=== PATIENT | female | born 1965 | race Caucasian/White ===

== ENCOUNTER 2017-08-09 21:45 | Observation (INO) | payer OTHER ==
[~2017-08-09] VITALS: Ht 162.6 cm; Wt 64.2 kg
[~2017-08-09 21:45] MED LIST: ALBU1AER9; ASCOTAB; ASPI81TA28 PO; CARV3.122 PO; CHOL1CAP13; FLUC100T4 PO; FLVHFA110 INH; HMLI SC; HYDR-3785 PO; INSU1.2I SC; LISI40TA PO; MISCCAP80 PO; TICA1TAB PO
[2017-08-09] MEDS ORDERED: SODIUM CHLORIDE 0.9% 1000ML 1,000 ML IV STA (22:01)
[2017-08-09] MEDS ORDERED: OPTIRAY 320 IV PRN (22:15)
[2017-08-09] MEDS ORDERED: ALBU18002 INH (22:23)
[2017-08-09] MEDS ORDERED: VNTHFA/IN INH (22:23)
[2017-08-09] MEDS ORDERED: ASCOGRA PO (22:25)
[2017-08-09 22:27] LABS: BASO % 0.6 %; BASO ABS # 0.03 K/uL (0-0.2); COMPLETE YES; EOS % 2.4 %; HEMATOCRIT 35.9 % (37-47); LYMPH % 35.4 %; LYMPH ABS # 1.88 K/uL (1.2-3.4); MEAN CELL VOLUME 83.3 fL (80-100); MEAN CORPUSCULAR HEMOGLOBIN 28.1 pg (25-34); MEAN CORPUSCULAR HGB CONC 33.7 g/dl (32-36); MONO % 8.1 %; NEUT % 53.5 %; PLATELET COUNT 243 K/uL (130-400); RED BLOOD COUNT 4.31 M/uL (4.2-5.4); WHITE BLOOD COUNT 5.31 K/uL (4.8-10.8)
[2017-08-09] MEDS ORDERED: CHOL1000 PO (22:27)
[2017-08-09] MEDS ORDERED: MAGN1POW16 PO (22:33)
[2017-08-09] MEDS ORDERED: LISI-461 PO (22:34)
[2017-08-09 22:35] LABS: ALT/SGPT 23 U/L (12-78); BLOOD UREA NITROGEN 14 mg/dl (7-18); BUN/CREATININE RATIO 16.4 (10-20); CALCIUM 9.1 mg/dl (8.5-10.1); CARBON DIOXIDE 29 mmol/L (21-32); CHLORIDE 100 mmol/L (98-107); CREATININE 0.84 mg/dl (0.60-1.20); GLUCOSE 153 mg/dl (70-99); POTASSIUM 3.7 mmol/L (3.5-5.1); SODIUM 135 mmol/L (136-145)
[2017-08-09 22:40] LABS: ALKALINE PHOSPHATASE 99 U/L (45-117); AST/SGOT 13 U/L (15-37)
[2017-08-09] MEDS ORDERED: LORA-741 PO (22:46)
[2017-08-09] MEDS ORDERED: TURM500C2 PO (22:46)
[2017-08-09] MEDS ORDERED: [UNRECOGNIZED DRUG - OTHER] PO (22:46)
[2017-08-09] MEDS ORDERED: DEXL60CA4 PO (22:53)
[2017-08-09] MEDS ORDERED: CEFD300C2 PO (22:53)
[2017-08-09] MEDS ORDERED: RANI1TAB75 PO (22:53)
[2017-08-09] MEDS ORDERED: DOXY100C76 PO (22:53)
[2017-08-09] MEDS ORDERED: CHLO4TAB70 PO (22:53)
[2017-08-09] MEDS ORDERED: DIGE1CAP7 PEG (22:53)
--- NOTE | 2017-08-09 22:55 | DIAGNOSTIC IMAGING REPORT ---
CHEST ONE VIEW PORTABLE HISTORY: 52 years-old Female CHEST PAIN acute atypical chest pain COMPARISON: Chest radiograph 04/16/2016 TECHNIQUE: Portable upright AP view of the chest FINDINGS: Cardiomediastinal and hilar silhouettes are within normal limits. No pneumothorax, pleural effusion, focal airspace consolidation or overt pulmonary edema. Bones of the chest are grossly intact. IMPRESSION: No acute cardiopulmonary process. The above report was generated using voice recognition software. It may contain grammatical, syntax or spelling errors. Electronically signed by: Flynn Olvera M.D. 08/09/2017 10:54 PM Dictated Date/Time: 08/09/2017 10:53 PM
--- NOTE | 2017-08-09 22:59 | EMERGENCY ROOM VISIT NOTE ---
History Report prepared by Omar: Santo Napoles Under the Supervision of: Dr. Ted Gay M.D. First contact with patient: 21:48 Chief Complaint: CHEST PAIN Stated Complaint: CHEST PAIN History of Present Illness The patient is a 52 year old female who presents to the Emergency Room with complaints of chest pain starting around 1400 which has worsened in the past hour. She states that she has been having pressure in her chest and a high heart rate. She additionally notes that her blood sugar is usually very regulated, though recently her blood sugar has been high. Additionally, she has been having difficulty keeping her salt balanced due to renal dysfunction. She is currently is on two cefdinir and doxycycline for Lyme's disease and an infection in her small bowel. The patient states that she does not take hydrocortisone. The patient has a history of dysautonomia, a heart attack two and a half years ago, a stroke ten years ago, and stage 1 breast cancer which was diagnosed in January, and she is planned to get surgery for this cancer. The patient notes that she was short of breath earlier in the day, though she is okay now. Source of History: patient Onset: 1400 Position: chest Quality: pressure Timing: worsening Associated Symptoms: + SOB Note: Associated symptoms: tachycardic Review of Systems See HPI for pertinent positives and negatives. A total of ten systems were reviewed and were otherwise negative. Past Medical & Surgical Medical Problems: (1) Breast cancer (2) Chest pain, rule out acute myocardial infarction (3) Dysautonomia (4) Heart attack (5) POTS (postural orthostatic tachycardia syndrome) (6) Stroke Social History Smoking Status: Never Smoker Marital Status: Housing Status: lives with family Occupation Status: employed Current/Historical Medications Scheduled Ascorbic Acid (Ascorbic Acid), 150 MG PO BID Carvedilol (Coreg), 3.125 MG PO DAILY Cefdinir (Omnicef), 300 MG PO BID Chlorpheniramine Maleate (Chlorpheniramine Maleate), 4 MG PO HS Cholecalciferol (Vitamin D3), 1,000 UNITS PO BID Dexlansoprazole (Dexilant), 60 MG PO HS Digestive Enzymes (Digestive Enzymes), 1 CAP PEG DAILYBD Doxycycline Monohydrate (Monodox), 100 MG PO BID Insulin Glargine (Toujeo Solostar), 50 UNIT SC DAILYBD Lisinopril (Zestril), 10 MG PO HS Lorazepam (Ativan), 0.5 MG PO BID Magnesium Citrate (Bulk) (Magnesium Citrate), 1 TSP PO BID Probiotic Product (Probiotic), 1 CAP PO BID Ranitidine HCl (Ranitidine 75), 75 MG PO BID Turmeric (Curcuma Longa) (Curcumin 95), 500 MG PO BID [Omegagize], 1 CAP PO BID Scheduled PRN Albuterol Hfa (Ventolin Hfa), 2-4 PUFFS INH Q6H PRN for SOB/Wheezing Allergies Coded Allergies: Moxifloxacin (Unverified Allergy, Severe, EXCELLERATED HEART RATE AND SKIN FLUSHED RED, 08/09/17) Ethanol (Unverified Allergy, Intermediate, unknown, 08/09/17) Phenylphenol (Unverified Allergy, Intermediate, unknown, 08/09/17) Acetaminophen (Unverified Adverse Reaction, Severe, ABDOMINAL PAIN, ) Amoxicillin (Unverified Adverse Reaction, Severe, VOMITING, 08/09/17) Clavulanic Acid (Unverified Adverse Reaction, Severe, VOMITING, 08/09/17) Metoclopramide (Unverified Adverse Reaction, Severe, FACIAL TWITCHES, ) Ibuprofen (Unverified Adverse Reaction, Intermediate, DIZZY, 08/09/17) Uncoded Allergies: JOVANY BENADRYL (Adverse Reaction, Severe, TEMPORARY PARALYSIS, 08/09/17) STEROIDS (Adverse Reaction, Severe, ELEVATED BLOOD SUGARS, 08/09/17) Physical Exam Vital Signs Date Time Temp Pulse Resp B/P (MAP) Pulse Ox O2 Delivery O2 Flow Rate FiO2 08/10/17 01:16 92 18 152/91 100 Room Air 08/09/17 23:59 108 18 137/80 100 Room Air 08/09/17 22:05 100 08/09/17 21:54 100 08/09/17 21:51 100 Room Air 08/09/17 21:47 36.6 105 12 184/94 100 Room Air Physical Exam GENERAL: Awake, alert, anxious-appearing, in no distress HENT: Dry mucous membranes. Normocephalic, atraumatic. Oropharynx unremarkable. EYES: Normal conjunctiva. Sclera non-icteric. NECK: Supple. No nuchal rigidity. FROM. No JVD. RESPIRATORY: Clear to auscultation. CARDIAC:Tachycardic. Extremities warm and well perfused. Pulses equal. ABDOMEN: Soft, non-distended. No tenderness to palpation. No rebound or guarding. No masses. RECTAL: Deferred. MUSCULOSKELETAL: Chest examination reveals no tenderness. The back is symmetrical on inspection without obvious abnormality. There is no CVA tenderness to palpation. No joint edema. LOWER EXTREMITIES: Calves are equal size bilaterally and non-tender. No edema. No discoloration. NEURO: Normal sensorium. No sensory or motor deficits noted. SKIN: Slightly Jaundiced. No rash noted. Medical Decision & Procedures ER Provider Diagnostic Interpretation: Radiology results as stated below per my review and radiologist interpretation: CHEST ONE VIEW PORTABLE HISTORY: 52 years-old Female CHEST PAIN acute atypical chest pain COMPARISON: Chest radiograph 04/16/2016 TECHNIQUE: Portable upright AP view of the chest FINDINGS: Cardiomediastinal and hilar silhouettes are within normal limits. No pneumothorax, pleural effusion, focal airspace consolidation or overt pulmonary edema. Bones of the chest are grossly intact. IMPRESSION: No acute cardiopulmonary process. The above report was generated using voice recognition software. It may contain grammatical, syntax or spelling errors. Electronically signed by: Fylnn Olvera M.D. 08/09/2017 10:54 PM Dictated Date/Time: 08/09/2017 10:53 PM STATRAD: Preliminary Findings Only See Final Report For Complete Findings CTA CHEST: No evidence of PE. Lungs are clear of any airspace disease. 9 mm solid pulmonary nodule at the left lower lobe without calcifications. This is indeterminate and may represent tumor or may be infectious. Follow-up or further workup advised. No pleural effusions. No adenopathy. Heart size is normal. Aorta is unremarkable. Radiologist: Abdirahman Borjas M.D Laboratory Results 08/09/17 22:07 Red Blood Count 4.31, Mean Corpuscular Volume 83.3, Mean Corpuscular Hemoglobin 28.1, Mean Corpuscular Hemoglobin Concent 33.7, Mean Platelet Volume 8.0, Neutrophils (%) (Auto) 53.5, Lymphocytes (%) (Auto) 35.4, Monocytes (%) (Auto) 8.1, Eosinophils (%) (Auto) 2.4, Basophils (%) (Auto) 0.6, Neutrophils # (Auto) 2.84, Lymphocytes # (Auto) 1.88, Monocytes # (Auto) 0.43, Eosinophils # (Auto) 0.13, Basophils # (Auto) 0.03 08/09/17 22:07 Test 08/09/17 22:07 White Blood Count 5.31 K/uL (4.8-10.8) Red Blood Count 4.31 M/uL (4.2-5.4) Hemoglobin 12.1 g/dL (12.0-16.0) Hematocrit 35.9 % (37-47) Mean Corpuscular Volume 83.3 fL (80-100) Mean Corpuscular Hemoglobin 28.1 pg (25-34) Mean Corpuscular Hemoglobin Concent 33.7 g/dl (32-36) Platelet Count 243 K/uL (130-400) Mean Platelet Volume 8.0 fL (7.4-10.4) Neutrophils (%) (Auto) 53.5 % Lymphocytes (%) (Auto) 35.4 % Monocytes (%) (Auto) 8.1 % Eosinophils (%) (Auto) 2.4 % Basophils (%) (Auto) 0.6 % Neutrophils # (Auto) 2.84 K/uL (1.4-6.5) Lymphocytes # (Auto) 1.88 K/uL (1.2-3.4) Monocytes # (Auto) 0.43 K/uL (0.11-0.59) Eosinophils # (Auto) 0.13 K/uL (0-0.5) Basophils # (Auto) 0.03 K/uL (0-0.2) RDW Standard Deviation 38.1 fL (36.4-46.3) RDW Coefficient of Variation 12.6 % (11.5-14.5) Immature Granulocyte % (Auto) 0.0 % Immature Granulocyte # (Auto) 0.00 K/uL (0.00-0.02) Anion Gap 6.0 mmol/L (3-11) Est Creatinine Clear Calc Drug Dose 74.1 ml/min Estimated GFR () 93.3 Estimated GFR (Non- 80.5 BUN/Creatinine Ratio 16.4 (10-20) Calcium Level 9.1 mg/dl (8.5-10.1) Total Bilirubin 0.2 mg/dl (0.2-1) Direct Bilirubin < 0.1 mg/dl (0-0.2) Aspartate Amino Transf (AST/SGOT) 13 U/L (15-37) Alanine Aminotransferase (ALT/SGPT) 23 U/L (12-78) Alkaline Phosphatase 99 U/L (45-117) Troponin I < 0.015 ng/ml (0-0.045) Total Protein 7.6 gm/dl (6.4-8.2) Albumin 3.8 gm/dl (3.4-5.0) Lipase 189 U/L (73-393) Laboratory results reviewed by me Medications Administered Medications (Trade) Dose Ordered Sig/Lesli Route Start Time Stop Time Status Last Admin Dose Admin Sodium Chloride 1,000 ml @ 999 mls/hr Q1H1M STAT IV 08/09/17 22:01 08/09/17 23:01 DC 08/09/17 22:12 999 MLS/HR ECG Indication: chest pain Rate (beats per minute): 105 Rhythm: sinus tachycardia Findings: no acute ischemic change, other (normal axis) ED Course 2147: The patient was evaluated in room C3. A complete history and physical exam was performed. 2200: Sodium Chloride 1000 ml @ 999 mls/hr IV Medical Decision I reviewed the patient's past medical history, medications, and the nursing notes as described above. Differential Diagnoses include: arrhythmia, PE, pneumonia, bronchitis, dissection, ACS, CHF, dehydration, electrolyte abnormality, gastritis. The patient is a 52-year-old woman with a dictated medical history including previous [place], pots syndrome/dysautonomia, recently diagnosed left breast cancer is emergency department with chest tightness and palpitations with shortness of breath. History of present illness. Arrival the patient is anxious appearing but in no acute distress. She is afebrile, heart rate in the low 100s and vital signs otherwise stable. Labs unremarkable with WBC within normal limits. Troponin negative. EKG unremarkable. The patient's active cancer CT PE study was done and negative for PE. However, did comment on a 9mm pulmonary nodule which given the patient's active cancer is suspicious for malignancy although patient had PET scan in March that commented that this nodule was not likely metabolically active and thus likely benign. Given the patient's chest pain in the setting of prior [place] is appropriate to admit this patient for ACS rule out as she has a Heart score of 4, moderate risk. Case d/w Dr. Buck, [facility] resdient , who will admit the patient for further management. Medication Reconcilliation Current Medication List: was personally reviewed by me Blood Pressure Screening Patient's blood pressure: Elevated blood pressure Impression Primary Impression: Substernal precordial chest pain Scribe Attestation The scribe's documentation has been prepared under my direction and personally reviewed by me in its entirety. I confirm that the note above accurately reflects all work, treatment, procedures, and medical decision making performed by me. Departure Information Referrals No Doctor, Assigned (PCP) Patient Instructions My [facility]
[2017-08-10] MEDS ORDERED: ONDANSETRON INJ 2 MG/ML 2 ML VIAL IV PRN ×2 (02:00→03:15)
--- NOTE | 2017-08-10 02:11 | History and Physical ---
History & Physical Date & Time of Service: Aug 10, 2017 at 02:11 Chief Complaint: Chest Pain Primary Care Physician: No Doctor, Assigned History of Present Illness Source: patient Mrs Fraser is a 52 year old female with diabetes and previous PA who presents to the ER with chest pain and palpitations. She notes she sometimes has palpitations while standing for long periods due to her POTS and has some chest pressure associated with this when her heart rate increases - this usually resolves when she sits or lies down on her side. Today however her symptoms started while she was sitting down and not exerting herself. Initially with palpitations, she took her blood pressure and notes her heart rate of 110 ( which is high for her), she then started to feel the same chest pressure sensation which lasted until the ER. She has associated diaphoresis with this. This is similar to the start of her heart attack previously however on that occasion the chest pressure was much more intense than today. Her symptoms were at their maximum around 9pm but have resolved by the time I saw her in the ER. She took x1 of her nitroglycerin which did not make any difference to her symptoms. She recalls a recent stress echo earlier in the year was negative as far as she remembers which she had as workup for potential surgery. She denies feeling unwell before this and is in town for a conference. She may be drinking slightly less than usual. She is currently on treatment for post lyme syndrome with doxycycline and omnicef. She has noticed a 50% improvement She was also diagnosed with stage 1 grade 1 breast cancer in January however she has not had any treatment for this but is awaiting cardiac clearance for bilateral mastectomy. Past Medical/Surgical History Past Medical History: GERD/gastric ulcer Autonomic dysfunction PA (x2 stents) Hyperlipidemia Post lyme disease syndrome Autism POTS Breast cancer Family History Noncontributory Social History Smoking Status: Never Smoker Smokeless Tobacco Use: No Alcohol Use: none Drug Use: none Marital Status: Occupational Status: employed Immunizations History of Influenza Vaccine: Unknown History of Tetanus Vaccine?: Unknown History of Pneumococcal: No History of Hepatitis B Vaccine: Unknown Multi-Drug Resistant Organisms History of MDRO: No Allergies Coded Allergies: Moxifloxacin (Unverified Allergy, Severe, EXCELLERATED HEART RATE AND SKIN FLUSHED RED, 08/09/17) Ethanol (Unverified Allergy, Intermediate, unknown, 08/09/17) Phenylphenol (Unverified Allergy, Intermediate, unknown, 08/09/17) Acetaminophen (Unverified Adverse Reaction, Severe, ABDOMINAL PAIN, ) Amoxicillin (Unverified Adverse Reaction, Severe, VOMITING, 08/09/17) Clavulanic Acid (Unverified Adverse Reaction, Severe, VOMITING, 08/09/17) Metoclopramide (Unverified Adverse Reaction, Severe, FACIAL TWITCHES, ) Ibuprofen (Unverified Adverse Reaction, Intermediate, DIZZY, 08/09/17) Uncoded Allergies: JOVANY BENADRYL (Adverse Reaction, Severe, TEMPORARY PARALYSIS, 08/09/17) STEROIDS (Adverse Reaction, Severe, ELEVATED BLOOD SUGARS, 08/09/17) Home Medications Scheduled Ascorbic Acid (Ascorbic Acid), 150 MG PO BID Carvedilol (Coreg), 3.125 MG PO DAILY Cefdinir (Omnicef), 300 MG PO BID Chlorpheniramine Maleate (Chlorpheniramine Maleate), 4 MG PO HS Cholecalciferol (Vitamin D3), 1,000 UNITS PO BID Dexlansoprazole (Dexilant), 60 MG PO HS Digestive Enzymes (Digestive Enzymes), 1 CAP PEG DAILYBD Doxycycline Monohydrate (Monodox), 100 MG PO BID Insulin Glargine (Toujeo Solostar), 50 UNIT SC DAILYBD Lisinopril (Zestril), 10 MG PO HS Lorazepam (Ativan), 0.5 MG PO BID Magnesium Citrate (Bulk) (Magnesium Citrate), 1 TSP PO BID Probiotic Product (Probiotic), 1 CAP PO BID Ranitidine HCl (Ranitidine 75), 75 MG PO BID Turmeric (Curcuma Longa) (Curcumin 95), 500 MG PO BID [Omegagize], 1 CAP PO BID Scheduled PRN Albuterol Hfa (Ventolin Hfa), 2-4 PUFFS INH Q6H PRN for SOB/Wheezing Nitroglycerin (Nitrostat), 1 TAB SL UD PRN for Chest Pain Review of Systems Constitutional: + sweats (see HPI), No fever, No chills, No weight loss Eyes: No worsening of vision ENT: No hearing loss Respiratory: No cough, No shortness of breath Cardiovascular: + chest pain (see HPI), + palpitations, No orthopnea, No PND, No edema, No claudication Abdomen: + problem reported (bloating), No pain, No nausea, No vomiting, No diarrhea, No constipation, No GI bleeding Musculoskeletal: No joint pain, No muscle pain Genitourinary - Female: No dysuria, No urinary frequency, No urinary urgency, No urinary incontinence, No urinary retention Endocrine: No fatigue Hematologic / Lymphatic: No abnormal bleeding/bruising Integumentary: No rash, No itch Physical Exam Vital Signs Date Time Temp Pulse Resp B/P (MAP) Pulse Ox O2 Delivery O2 Flow Rate FiO2 08/10/17 01:16 92 18 152/91 100 Room Air 08/09/17 23:59 108 18 137/80 100 Room Air 08/09/17 22:05 100 08/09/17 21:54 100 08/09/17 21:51 100 Room Air 08/09/17 21:47 36.6 105 12 184/94 100 Room Air General Appearance: WD/WN, no apparent distress Head: normocephalic, atraumatic Eyes: normal inspection, PERRL, EOMI Neck: supple, no JVD Respiratory/Chest: chest non-tender, lungs clear, normal breath sounds, no respiratory distress, no accessory muscle use Cardiovascular: no murmur, normal peripheral pulses, + tachycardia (90s, regular) Abdomen/GI: normal bowel sounds, non tender, soft Back: no CVA tenderness Extremities/Musculoskelatal: no calf tenderness, normal capillary refill, no pedal edema Neurologic/Psych: clinic coordinator II-XII nml as tested, no motor/sensory deficits (grossly) , alert, oriented x 3 Skin: normal color, warm/dry, no rash Diagnostics Laboratory Results Results Past 24 Hours Test 08/09/17 22:07 Range/Units White Blood Count 5.31 4.8-10.8 K/uL Red Blood Count 4.31 4.2-5.4 M/uL Hemoglobin 12.1 12.0-16.0 g/dL Hematocrit 35.9 37-47 % Mean Corpuscular Volume 83.3 80-100 fL Mean Corpuscular Hemoglobin 28.1 25-34 pg Mean Corpuscular Hemoglobin Concent 33.7 32-36 g/dl Platelet Count 243 130-400 K/uL Mean Platelet Volume 8.0 7.4-10.4 fL Neutrophils (%) (Auto) 53.5 % Lymphocytes (%) (Auto) 35.4 % Monocytes (%) (Auto) 8.1 % Eosinophils (%) (Auto) 2.4 % Basophils (%) (Auto) 0.6 % Neutrophils # (Auto) 2.84 1.4-6.5 K/uL Lymphocytes # (Auto) 1.88 1.2-3.4 K/uL Monocytes # (Auto) 0.43 0.11-0.59 K/uL Eosinophils # (Auto) 0.13 0-0.5 K/uL Basophils # (Auto) 0.03 0-0.2 K/uL RDW Standard Deviation 38.1 36.4-46.3 fL RDW Coefficient of Variation 12.6 11.5-14.5 % Immature Granulocyte % (Auto) 0.0 % Immature Granulocyte # (Auto) 0.00 0.00-0.02 K/uL Sodium Level 135 136-145 mmol/L Potassium Level 3.7 3.5-5.1 mmol/L Chloride Level 100 98-107 mmol/L Carbon Dioxide Level 29 21-32 mmol/L Anion Gap 6.0 3-11 mmol/L Blood Urea Nitrogen 14 7-18 mg/dl Creatinine 0.84 0.60-1.20 mg/dl Est Creatinine Clear Calc Drug Dose 74.1 ml/min Estimated GFR () 93.3 Estimated GFR (Non- 80.5 BUN/Creatinine Ratio 16.4 10-20 Random Glucose 153 70-99 mg/dl Calcium Level 9.1 8.5-10.1 mg/dl Total Bilirubin 0.2 0.2-1 mg/dl Direct Bilirubin < 0.1 0-0.2 mg/dl Aspartate Amino Transf (AST/SGOT) 13 15-37 U/L Alanine Aminotransferase (ALT/SGPT) 23 12-78 U/L Alkaline Phosphatase 99 45-117 U/L Troponin I < 0.015 0-0.045 ng/ml Total Protein 7.6 6.4-8.2 gm/dl Albumin 3.8 3.4-5.0 gm/dl Lipase 189 73-393 U/L Diagnostic Radiology CHEST ONE VIEW PORTABLE HISTORY: 52 years-old Female CHEST PAIN acute atypical chest pain COMPARISON: Chest radiograph 04/16/2016 TECHNIQUE: Portable upright AP view of the chest FINDINGS: Cardiomediastinal and hilar silhouettes are within normal limits. No pneumothorax, pleural effusion, focal airspace consolidation or overt pulmonary edema. Bones of the chest are grossly intact. IMPRESSION: No acute cardiopulmonary process. The above report was generated using voice recognition software. It may contain grammatical, syntax or spelling errors. Electronically signed by: Flynn Olvera M.D. 08/09/2017 10:54 PM Dictated Date/Time: 08/09/2017 10:53 PM EKG Sinus tachycardia Rate 105 bpm No ischemia noted When compared with ECG of 16-APR-2016 21:03, No significant change was found Impression Assessment and Plan 52 year old female with type 2 diabetes, hyperlipidemia and previous PA presents with palpitations and chest pain Chest pain rule out PA - certainly atypical and much less intense than her previous PA, however given significant risk factors we will observe over night and repeat her troponin in the morning, she has been unable to tolerate optimal medical treatment. CT for PE negative in ER - troponin - consult cardiology in the morning 9mm nodule noted on CT with Hx breast ca. - as per patient also noted on recent PET scan - provide patient copy of CT - need for follow up with oncologist GERD/gastric ulcer - continue dexlansoprazole Autonomic dysfunction - monitor BP and HR, continue O/P bowel regimen PA (x2 stents) - continue low dose coreg, will give additional dose now, intolerant to aspirin (gastric ulcer, pending EGD) and statins Hyperlipidemia - intolerant to statins, O/P follow up Post lyme disease syndrome- continue her O/P regimen of doxycycline POTS - likely cause of tachycardia - rehydrate overnight with IVF Breast cancer - O/P follow up, provide CT scan on discharge as nodule noted on lung Attending addendum: I have physically seen this patient, have supervised the medical residents activities, and agree with the H&P unless as otherwise noted. Assessment and Plan: Precordial chest pain/CAD/history of PA/history of coronary artery stents 2-- The patient will be admitted to telemetry for serial cardiac enzymes, cardiac rhythm monitoring and a 2-D echocardiogram with Dopplers. Consult cardiology Autonomic dysfunction/POTS-- Patient likely needs to liberalize her salt, consider being put on oral salt tablets, continue with increased fluid intake, consider heat or cold compression gear from companies like [employer] during appropriate seasons. Lyme disease-- Continue doxycycline, monitor for signs of pill-induced esophagitis. GERD/gastric ulcer-- continue PPI Level of Care Telemetry Advanced Directives Existing Advance Directive: No Existing Living Will: No Existing Power of Ios Architect: No Resuscitation Status FULL RESUSCITATION VTE Prophylaxis VTE Risk Assessment Done? Y/N: Yes Risk Level: Low Given or contraindicated: Unfractionated heparin SQ, T.E.D. Stockings, SCD's Social Service Consult None Apply Resident Tracking Resident Involvement: Resident Care Provided Care Provided: Adult Hospital Medicine
[2017-08-10 02:23] VITALS: BP 174/104; PULSE 94; TEMP 36.5; O2SAT 100; Ht 162.6 cm; Wt 64.2 kg
[2017-08-10] MEDS ORDERED: IV FLUIDS COMPLETED PRN (02:30)
[2017-08-10] MEDS ORDERED: CARVEDILOL 3.125 MG TAB PO STA (02:48)
[2017-08-10] MEDS ORDERED: LORAZEPAM 0.5 MG TAB PO STA (02:48)
[2017-08-10] MEDS ORDERED: ALBUTEROL HFA 8 GM INHALER INH PRN (03:00)
[2017-08-10] MEDS ORDERED: CEFDINIR 300 MG CAP PO STA (03:10)
[2017-08-10] MEDS ORDERED: GLUCOSE 40% GEL 15 GM TUBE PO PRN (03:45)
[2017-08-10] MEDS ORDERED: GLUCAGON FOR INJ 1 MG VIAL SQ PRN (03:45)
[2017-08-10] MEDS ORDERED: GLUCOSE 10 TABS/TUBE PO PRN (03:45)
[2017-08-10] MEDS ORDERED: DEXTROSE 50% 50 ML SYR IV PRN (03:45)
[2017-08-10 04:13] VITALS: BP 156/83; PULSE 82
[2017-08-10] MEDS ORDERED: SODIUM CHLORIDE 0.9% 1000ML 1,000 ML IV ONE (04:15)
[2017-08-10] MEDS ORDERED: GLYCERIN ADULT 1 EA SUPP PR ONE (06:30)
[2017-08-10 07:19] VITALS: BP 164/95; PULSE 86; TEMP 36.3; O2SAT 100
[2017-08-10 07:25] LABS: PROTHROMBIN TIME (PATIENT) 10.7 SECONDS (9.0-12.0)
[2017-08-10] MEDS ORDERED: [UNRECOGNIZED DRUG - OTHER] SCH (08:00)
[2017-08-10] MEDS: CEFDINIR 300 MG CAP PO SCH ×2 (08:38→11:44)
[2017-08-10] MEDS ORDERED: MAGNESIUM CITRATE 296 ML/BTL PO SCH (09:00)
[2017-08-10] MEDS ORDERED: CARVEDILOL 3.125 MG TAB PO SCH (09:00)
[2017-08-10] MEDS ORDERED: LACTOBACILLUS ACIDOPHILUS (FLORANEX) TAB PO SCH (09:00)
[2017-08-10] MEDS ORDERED: DOXYCYCLINE HYCLATE 100 MG CAP PO SCH (09:00)
[2017-08-10] MEDS ORDERED: [UNRECOGNIZED DRUG - OTHER] PO SCH (09:00)
[2017-08-10] MEDS ORDERED: RANITIDINE HCL 150 MG TAB PO SCH (09:00)
[2017-08-10] MEDS ORDERED: TURMERIC 500 MG PO SCH (09:00)
[2017-08-10] MEDS ORDERED: CHOLECALCIFEROL 1000 INTER.UNIT TAB PO SCH (09:00)
[2017-08-10] MEDS ORDERED: LORAZEPAM 0.5 MG TAB PO SCH (09:00)
[2017-08-10] MEDS ORDERED: HEPARIN SOD 5000 UNIT/0.5 ML CARP SQ SCH (09:00)
[2017-08-10] MEDS ORDERED: ASCORBIC ACID 500 MG TAB PO SCH (09:00)
--- NOTE | 2017-08-10 09:18 | DIAGNOSTIC IMAGING REPORT ---
CT ANGIOGRAM OF THE CHEST CLINICAL HISTORY: ATYPICAL CHEST PAIN COMPARISON STUDY: Chest x-ray dated 08/09/2017 TECHNIQUE: Following the IV administration of 82 mL of Optiray-320, CT angiogram of the thorax was performed from the thoracic inlet to the lung bases utilizing the pulmonary embolus protocol. Images are reviewed in the axial, sagittal, and coronal planes. IV contrast was administered without complication. MIP imaging was performed. A dose lowering technique was utilized adhering to the principles of ALARA. CT DOSE: 203.37 mGy.cm FINDINGS: No pathologically enlarged axillary mediastinal or hilar lymph nodes were visualized. There was no evidence of thoracic aortic dilatation. There were no pulmonary artery filling defects to indicate acute pulmonary embolism. There is a trace right pleural effusion There are multiple scattered bilateral solid pulmonary nodules. The largest is located within the left lower lobe measuring 8 mm. (Image #[id number]) IMPRESSION: 1. No evidence of acute pulmonary embolism 2. No evidence of focal pulmonary consolidation 3. Trace right pleural effusion 4. Multiple bilateral solid pulmonary nodules, the largest of which is located within the left lower lobe measuring 8 mm. A 3-[address] scan is recommended per Fleischner criteria. Please refer to below summary of Fleischner criteria recommendations for follow-up of incidental CT nodules (Susi Becerril, Guidelines for management of small pulmonary nodules detected on CT scans: A statement from the Fleischner Society, Radiology 237: [phone].) SOLID NODULES Solitary nodule size: <6 mm * low risk patients: no follow-up needed * high risk patients: optional CT at 12 months Solitary nodule size: 6-8 mm * low risk patients: follow-up at 6-12 months, then consider further follow-up at 18-24 months * high risk patients: initial follow-up CT at 6-12 months and then at 18-24 months if no change Solitary nodule size: >8 mm * either low or high risk patients - consider follow-up CT at 3 months, and/or CT-PET, and/or biopsy Multiple nodules size: <6 mm * low risk patients: no routine follow-up * high risk patients: optional CT at 12 months Multiple nodules size: 6-8 mm * low risk patients: follow-up at 3-6 months, then consider further follow-up at 18-24 months * high risk patients: follow-up at 3-6 months, then at 18-24 months if no change Multiple nodules size: >8 mm * low risk patients: follow-up at 3-6 months, then consider further follow-up at 18-24 months * high risk patients: follow-up at 3-6 months, then at 18-24 months if no change Note: newly detected indeterminate nodule in persons 35 years of age or older. * low risk patients: minimal or absent history of smoking and/or other known risk factors * high risk patients: history of smoking or of other known risk factors (e.g. first degree relative with lung cancer, or exposure to asbestos, radon, uranium) * if a nodule up to 8 mm is partly solid or is ground glass further follow-up is required after 24 months to exclude possible slow growing adenocarcinoma (FRANCISCA) SUBSOLID NODULES Solitary pure ground-glass nodule * nodule size <6 mm - no CT follow-up required * nodule size >=6 mm - follow-up CT at 6-12 months, then every 2 years until 5 years Solitary part-solid nodule * nodule size <6 mm - no CT follow-up required * nodule size >=6 mm - follow-up CT at 3-6 months. If unchanged, and solid component remains <6 mm, then annual follow-up for 5 years Multiple subsolid nodules * nodule size <6 mm - follow-up CT at 3-6 months, consider further follow-up at 2 and 4 years if stable * nodule size >=6 mm - follow-up CT at 3-6 months, subsequent management based on the most suspicious nodule(s) Electronically signed by: Luis Lo M.D. 08/10/2017 9:16 AM Dictated Date/Time: 08/10/2017 6:34 AM
[2017-08-10 11:02] VITALS: BP 148/80; PULSE 75; TEMP 36.5; O2SAT 100
--- NOTE | 2017-08-10 13:03 | Discharge Instructions ---
Discharge Instructions Date of Service Aug 10, 2017. Admission Reason for Admission: Breast Cancer, Chest Pain, Rule Out Acute Myocardi Discharge Discharge Diagnosis / Problem: Palpitations and chest discomfort Discharge Goals Goal(s): Diagnostic testing Activity Recommendations Activity Limitations: per Instructions/Follow-up section . Instructions / Follow-Up Instructions / Follow-Up You came to the hospital due to chest pain and palpitations Your troponin (heart enzymes) and EKG of your heart were both normal. We did a CXR which didn't show any abnormalities. Your blood work (white blood cells, red blood cells, platelets, liver enzymes, kidney function) was also all normal. There was a CT scan done of your heart which showed a 8mm nodule in the left lower lobe of your lung. You will need to get a repeat CT scan in 3-6 months. You were seen by a is manager and it is recommended that you follow up with your own is manager back home in the next 1-2 weeks. If you experience any worsening chest pain, palpitations, or shortness of breath then please come back to the emergency department Current Hospital Diet Patient's current hospital diet: Diabetes Type 2 Diet Discharge Diet Recommended Diet: AHA Diet (Heart Healthy), Diabetes Type 2 Diet Pending Studies Studies pending at discharge: no Medical Emergencies . Who to Call and When: Medical Emergencies: If at any time you feel your situation is an emergency, please call 911 immediately. . Non-Emergent Contact Non-Emergency issues call your: Primary Care Provider, [facility] . . "Provider Documentation" section prepared by Chris Bedoya. . VTE Core Measure Inpt VTE Proph given/why not?: Unfractionated heparin AKUA, TSteveEGeorgina Vo, NATALIE 's
--- NOTE | 2017-08-10 13:09 | Discharge Summary ---
Discharge Summary Date of Service Aug 10, 2017. (Chris Bedoya MD) Discharge Summary Admission Date: Aug 10, 2017 at 02:01 Discharge Date: Aug 10, 2017 Discharge Disposition: Home Principal Diagnosis: Palpitations Consultations: Cardiology (Chris Bedoya MD) Medication Reconciliation Continued Medications: Albuterol Hfa (Ventolin Hfa) 200 Puffs/19226 Mcg Aers 2-4 PUFFS INH Q6H PRN for SOB/Wheezing, #1 INHALER Ascorbic Acid (Ascorbic Acid) 1 Pow Pow 150 MG PO BID Carvedilol (Coreg) 3.125 Mg Tab 3.125 MG PO DAILY for 30 Days, #30 TAB 3 Refills Cefdinir (Omnicef) 300 Mg Cap 300 MG PO BID, CAP Chlorpheniramine Maleate (Chlorpheniramine Maleate) 4 Mg Tab 4 MG PO HS Cholecalciferol (Vitamin D3) 1,000 Unit Tab 1000 UNITS PO BID for 90 Days, TAB 3 Refills Dexlansoprazole (Dexilant) 60 Mg Cap 60 MG PO HS Digestive Enzymes (Digestive Enzymes) 1 Cap Cap 1 CAP PEG DAILYBD Doxycycline Monohydrate (Monodox) 100 Mg Cap 100 MG PO BID, CAP Insulin Glargine (Toujeo Solostar) 300 Unit/Ml Inj 50 UNIT SC DAILYBD Lisinopril (Zestril) 10 Mg Tab 10 MG PO HS, TAB Lorazepam (Ativan) 0.5 Mg Tab 0.5 MG PO BID, TAB Magnesium Citrate (Bulk) (Magnesium Citrate) 1 Pow Pow 1 TSP PO BID Probiotic Product (Probiotic) 1 Cap Cap 1 CAP PO BID Ranitidine HCl (Ranitidine 75) 75 Mg Tab 75 MG PO BID Turmeric (Curcuma Longa) (Curcumin 95) 500 Mg Cap 500 MG PO BID [Omegagize] () 1 CAP PO BID Discharge Exam Patient without any chest pain or palpitations Patient without any symptoms since being admitted Review of Systems: Constitutional: No fever, No chills, No sweats Respiratory: No cough, No shortness of breath Cardiovascular: No chest pain, No edema, No palpitations Abdomen: + pain (chronic), + diarrhea (chronic), + constipation (chronic), No nausea, No vomiting Musculoskeletal: + joint pain (chronic), + muscle pain (chronic) Genitourinary - Female: No dysuria Physical Exam: General Appearance: WD/WN, no apparent distress ENT: hearing grossly normal, pharynx normal Neck: supple, no adenopathy, no JVD, no carotid bruits, trachea midline Respiratory/Chest: lungs clear, no respiratory distress, no accessory muscle use Cardiovascular: regular rate, rhythm, no edema, no murmur, normal peripheral pulses Abdomen / GI: normal bowel sounds, soft, + tenderness (mild RUQ and epigastric tenderness) Extremities: no calf tenderness, no pedal edema, normal range of motion Neurologic/Psychiatric: alert, normal mood/affect, oriented x 3 (Chris Bedoya MD) Review of Systems: Constitutional: No fever Respiratory: No shortness of breath Cardiovascular: No chest pain Abdomen: No pain Physical Exam: General Appearance: no apparent distress Respiratory/Chest: lungs clear, no respiratory distress Cardiovascular: regular rate, rhythm Abdomen / GI: normal bowel sounds, non tender, soft Neurologic/Psychiatric: alert, oriented x 3 Skin: warm/dry (Arelis Salmeron M.D.) Hospital Course 52 year old female with type 2 diabetes, hyperlipidemia and previous NJ presents with palpitations and chest pain Chest pain rule out NJ - patient with negative troponins in hospital - EKG without any ST changes or concerning findings - patient has not tolerated dobutamine stress test in past and recently had regular stress test in March and was without any concerning findings - cardiology consulted and do not suggest any further intervention in hospital - patient to follow up with chief bank examiner as outpatient - patient has run out of nitroglycerin tablets therefore prescribed and sent to pharmacy to take PRN for chest pain 9mm nodule noted on CT with Hx breast ca. - as per patient also noted on recent PET scan - patient will need to follow up with oncologist as outpatient GERD/gastric ulcer - continue dexlansoprazole Autonomic dysfunction - O/P bowel regimen NJ (x2 stents) - continue low dose coreg, intolerant to aspirin (gastric ulcer, pending EGD) and statins Hyperlipidemia - intolerant to statins, O/P follow up Post lyme disease syndrome- continue her O/P regimen of doxycycline POTS - likely cause of tachycardia - rehydrate overnight with IVF Breast cancer - O/P follow up, provide CT scan on discharge as nodule noted on lung Total Time Spent: Less than 30 minutes This includes examination of the patient, discharge planning, medication reconciliation, and communication with other providers. (Chris Bedoya MD) Resident Physician Supervision Note: I independently interviewed and examined the patient and verified the trevino history and physical, reviewed labs and image studies, discussed the case with the resident Dr. Bedoya and agree with the findings and care plan. Total Time Spent: Greater than 30 minutes (35) (Arelis Salmeron M.D.) Discharge Instructions Please refer to the electronic Patient Visit Report (Discharge Instructions) for additional information. (Chris Bedoya MD)
[2017-08-10 13:54] VITALS: BP 148/80; PULSE 75; TEMP 36.5; O2SAT 100
[2017-08-10] MEDS ORDERED: NITR0.6S7 SL (13:58)
[2017-08-10] MEDS ORDERED: NTRGSL/4 SL (14:04)
--- NOTE | 2017-08-10 14:10 | Cardiology Consultation ---
Cardiology Consultation Date of Consultation: Aug 10, 2017. Attending Physician: Dr. Green Reason for Consultation: PMH of [place], TIA, HTN, HLD, POTS, who presented with chest discomfort, palpitations, tachycardia, and diaphoresis at rest. Pt evaluation today including: conversation w/ patient, physical exam, chart review, lab review, review of studies, review of inpatient medication list History of Present Illness 52 yo F with PMH of POTS, T2DM, TIA, HTN, Stage I Breast Cancer, and STEMI in March 2015 presents with chest discomfort, palpitations, diaphoresis and tachycardia. She lives near [place] and is in town for a conference. Compared to her previous [place] in 2014, the chest discomfort was different in character, as she did not feel the "crushing" pain as she did in 2014. She also reports the location of the discomfort yesterday was lateral left chest and not in the center of her chest like her previous [place]. She reports no pain in the chest and finds it difficult to rate her discomfort last night on a scale of 1- 10. She reports identical symptoms on exertion related to her POTS several times per week, however last evening these symptoms occurred while at rest and awoke her from sleep at 8 pm. She reports that her diet was not great yesterday, and she was dehydrated from travel/poor food choices. She states that if these symptoms arose while she was in her own home she would likely have not presented to ED. She travels with an automatic BP cuff and noted at the onset of symptoms her HR was 115. She does not recall the BP reading She took a nitro tab at the hotel which did not alleviate her symptoms. The episode slowly improved over the course of 2 hours and she feels herself while at bedside today. Patient sees 2 different cardiologists in [place], one every 6 months regularly and one for POTS specifically. She last had an echo in summer 2016 which was normal per patient. She cannot tolerate stress echos due to her POTS. She has been told she has diabetic cardioneuropathy with labile blood pressures and is working with an fruit and vegetable classer to improve this prior to left breast mastectomy. Past Medical/Surgical History STEMI March 2015, POTS: has had several episodes of syncope notably in 2016 for 4 months, but has not had any since that time. She takes coreg 3.125 daily and can take up to 4 tabs daily prn for symptomatic rx Stage I breast cancer w/o intervention to date: Diagnosed earlier this year, awaiting cardiac clearance for mastectomy T2DM: states she is well controlled, sugars rarely >140; last evening BSG was 286, reports gut motility issues as well GI dysmotility: on cefdinir, dx in 2006. HLD HTN-- takes lisinopril 10 2006: was found to be T2DM at that time. Lyme disease: currently on doxycycline Family History Paternal grandfather: RIP from [place] in his 50s Father: leaky valves, reports he had 20 strokes in 25 years Mother: HLD, DM, HTN Maternal grandmother: saw cardio regularly for heart issue but unsure of what the issue was Social History Smoking Status: Never Smoker History of Alcohol Use: No Review of Systems Constitutional: + fatigue Respiratory: No cough, No sputum, No wheezing, No shortness of breath, No dyspnea on exertion, No dyspnea at rest, No hemoptysis, No problem reported Cardiac: No see HPI, No chest pain, No orthopnea, No PND, No edema, No claudication, No palpitations, No problem reported Abdomen: + pain (related to dysmotility), No see HPI, No nausea, No vomiting, No diarrhea, No constipation, No GI bleeding, No problem reported Neurologic: + numbness/tingling (related to diabetic neuropathy in feet) All Other Systems: Reviewed and Negative Allergies Coded Allergies: Moxifloxacin (Unverified Allergy, Severe, EXCELLERATED HEART RATE AND SKIN FLUSHED RED, 08/09/17) Ethanol (Unverified Allergy, Intermediate, unknown, 08/09/17) Phenylphenol (Unverified Allergy, Intermediate, unknown, 08/09/17) Acetaminophen (Unverified Adverse Reaction, Severe, ABDOMINAL PAIN, ) Amoxicillin (Unverified Adverse Reaction, Severe, VOMITING, 08/09/17) Clavulanic Acid (Unverified Adverse Reaction, Severe, VOMITING, 08/09/17) Metoclopramide (Unverified Adverse Reaction, Severe, FACIAL TWITCHES, ) Ibuprofen (Unverified Adverse Reaction, Intermediate, DIZZY, 08/09/17) Uncoded Allergies: OJVANY BENADRYL (Adverse Reaction, Severe, TEMPORARY PARALYSIS, 08/09/17) STEROIDS (Adverse Reaction, Severe, ELEVATED BLOOD SUGARS, 08/09/17) Medications Current Inpatient Medications Medications (Trade) Dose Ordered Sig/Lesli Route Start Time Stop Time Status Last Admin Dose Admin Ioversol (Optiray 320) 111 ml UD PRN IV 08/09/17 22:15 08/13/17 22:14 Heparin Sodium (Porcine) (Heparin Sq 5000 Unit/0.5ml) 5,000 unit Q12 SQ 08/10/17 09:00 09/09/17 08:59 Miscellaneous (Iv Fluids Completed) 1 ea PRN PRN N/A 08/10/17 02:30 08/10/18 02:29 Albuterol (Ventolin Hfa Inhaler) 2 puffs Q6H PRN INH 08/10/17 03:00 09/09/17 02:59 Carvedilol (Coreg Tab) 3.125 mg DAILY PO 08/10/17 09:00 09/09/17 08:59 08/10/17 08:35 3.125 MG Cefdinir (Omnicef Cap) 300 mg BID PO 08/10/17 09:00 09/09/17 08:59 08/10/17 11:44 300 MG Doxycycline Hyclate (Vibramycin Cap) 100 mg BID PO 08/10/17 09:00 09/09/17 08:59 08/10/17 08:34 100 MG Lisinopril (Zestril Tab) 10 mg HS PO 08/10/17 21:00 09/09/17 20:59 Lorazepam (Ativan Tab) 0.5 mg BID PO 08/10/17 09:00 09/09/17 08:59 08/10/17 08:34 0.5 MG Cholecalciferol (Vitamin D Tab) 1,000 inter.unit BID PO 08/10/17 09:00 09/09/17 08:59 Ascorbic Acid (Vitamin C Tab) 125 mg BID PO 08/10/17 09:00 09/09/17 08:59 Non-Formulary Medication (Non-Formulary Patient'S Own Med) 1 ea HS PO 08/10/17 21:00 09/09/17 20:59 Insulin Glargine (Lantus Solostar Pen) 40 units DAILYBD SC 08/10/17 16:15 08/10/17 16:16 Magnesium Citrate (Citrate Of Magnesia Soln) 5 ml BID PO 08/10/17 09:00 09/09/17 08:59 Lactobacillus Acidophilus (Floranex Tab) 1 tab BID PO 08/10/17 09:00 09/09/17 08:59 Ranitidine HCl (zANTac TAB) 75 mg BID PO 08/10/17 09:00 09/09/17 08:59 08/10/17 08:35 75 MG Ondansetron HCl (Zofran Inj) 4 mg Q6H PRN IV 08/10/17 03:15 09/09/17 03:14 Glucose (Glucose 40% Gel) 15-30 GRAMS 15 GRAMS... UD PRN PO 08/10/17 03:45 09/09/17 03:44 Glucose (Glucose Chew Tab) 4-8 Tablets 4 Tabl... UD PRN PO 08/10/17 03:45 09/09/17 03:44 Dextrose (Dextrose 50% 50ML Syringe) 25-50ML OF 50% DW IV FOR... UD PRN IV 08/10/17 03:45 09/09/17 03:44 Glucagon (Glucagon Inj) 1 mg UD PRN SQ 08/10/17 03:45 09/09/17 03:44 Insulin Glargine (Lantus Solostar Pen) 50 units DAILYBD SC 08/11/17 16:15 09/10/17 16:14 Non-Formulary Medication (Non-Formulary Patient'S Own Med) 1 ea DAILYBD PEG 08/10/17 16:15 09/09/17 16:14 08/10/17 11:44 1 EA Dexlansoprazole (Dexilant Dr) 60 mg HS PO 08/10/17 21:00 09/09/17 20:59 Physical Exam Vital Signs Past 12 Hours Date Time Temp Pulse Resp B/P (MAP) Pulse Ox O2 Delivery O2 Flow Rate FiO2 08/10/17 12:00 Room Air 08/10/17 11:02 36.5 75 18 148/80 (102) 100 Room Air 08/10/17 08:00 Room Air 08/10/17 07:19 36.3 86 18 164/95 (118) 100 Room Air 08/10/17 04:13 82 156/83 (107) 08/10/17 02:23 36.5 94 20 174/104 100 Room Air 08/10/17 02:16 95 16 153/90 100 Constitutional: General Apperance: heathly-appearing, well-nourished, well-developed Level of Distress: NAD Ambulation: ambulating normally Psychiatric: Mental Status: active & alert, abnormal affect (flat; patient reports she is autistic) Orientation: oriented except where noted Head: atraumatic ENMT: hearing grossly normal Neck: supple, trachea midline, no masses, FROM Lungs: Respiratory effort: no dyspnea, good air movement Auscultation: breath sounds normal, CTA except as noted, no wheezing, no rales/crackles, no rhonchi Cardiovascular: Apical Impulse: not displaced Heart Auscultation: RRR, normal S1, normal S2, no murmurs, no rubs, no gallops Peripheral Pulses: Bruits: none appreciated Carotid Pulse: normal on the left, normal on the right Radial Pulse: normal on the left, normal on the right Femoral Pulse: normal on the left, normal on the right Dorsalis Pedis Pulse: normal on the left, normal on the right Abdomen: Bowel Sounds: normal Inspection & Palpation: soft, non-distended, no tenderness, guarding & rebound, no masses Liver: no hepatomegaly Musculoskeletal: normal, normal tone Extremities: no cyanosis, no edema, no varicosities, no ulcers Neurologic: Gait & Station: normal gait Cranial Nerves: grossly intact Data Laboratory Results: Last 24 Hours Test 08/09/17 22:07 08/10/17 06:10 08/10/17 11:03 White Blood Count 5.31 K/uL Red Blood Count 4.31 M/uL Hemoglobin 12.1 g/dL Hematocrit 35.9 % Mean Corpuscular Volume 83.3 fL Mean Corpuscular Hemoglobin 28.1 pg Mean Corpuscular Hemoglobin Concent 33.7 g/dl Platelet Count 243 K/uL Mean Platelet Volume 8.0 fL Neutrophils (%) (Auto) 53.5 % Lymphocytes (%) (Auto) 35.4 % Monocytes (%) (Auto) 8.1 % Eosinophils (%) (Auto) 2.4 % Basophils (%) (Auto) 0.6 % Neutrophils # (Auto) 2.84 K/uL Lymphocytes # (Auto) 1.88 K/uL Monocytes # (Auto) 0.43 K/uL Eosinophils # (Auto) 0.13 K/uL Basophils # (Auto) 0.03 K/uL RDW Standard Deviation 38.1 fL RDW Coefficient of Variation 12.6 % Immature Granulocyte % (Auto) 0.0 % Immature Granulocyte # (Auto) 0.00 K/uL Sodium Level 135 mmol/L Potassium Level 3.7 mmol/L Chloride Level 100 mmol/L Carbon Dioxide Level 29 mmol/L Anion Gap 6.0 mmol/L Blood Urea Nitrogen 14 mg/dl Creatinine 0.84 mg/dl Est Creatinine Clear Calc Drug Dose 74.1 ml/min Estimated GFR () 93.3 Estimated GFR (Non- 80.5 BUN/Creatinine Ratio 16.4 Random Glucose 153 mg/dl Calcium Level 9.1 mg/dl Total Bilirubin 0.2 mg/dl Direct Bilirubin < 0.1 mg/dl Aspartate Amino Transf (AST/SGOT) 13 U/L Alanine Aminotransferase (ALT/SGPT) 23 U/L Alkaline Phosphatase 99 U/L Troponin I < 0.015 ng/ml < 0.015 ng/ml Total Protein 7.6 gm/dl Albumin 3.8 gm/dl Lipase 189 U/L Prothrombin Time 10.7 SECONDS Prothromb Time International Ratio 1.0 Bedside Glucose 69 mg/dl Imaging: EKG: Telemetry reviewed: Assessment & Plan Patient is reporting symptoms identical in nature to episodes of POTS while at rest. Patient reports her symptoms have resolved and that she would like to go home and rest. Cardiac focused exam was normal. Considering the change in her daily habit while away from home, sensations similar to those of her usual POTS , the lack of symptoms similar to her previous [place], negative cardiac markers and EKG changes, this is unlikely an ischemic event. Recommend continuing her home medical therapy and that she follow up with her home service line bus cleaner on return to [place]. Please refill her nitro supply. Thank you for allowing us to participate in this patient's care. Please contact cardiology team with further questions. CARDIOLOGY ATTENDING ADDENDUM: ABOVE NOTE IS BY FAMILY PRACTICE RESIDENT. SEE MY NOTE UNDER SEPARATE COVER NERY GREEN
[2017-08-10] MEDS ORDERED: INSULIN GLARGINE SOLOSTAR 100 UNITS/ML 3 ML PEN SC SCH (16:15)
[2017-08-10] MEDS ORDERED: DIGEST GOLD PEG SCH (16:15)
--- NOTE | 2017-08-10 16:22 | CARDIOLOGY CONSULTATION ---
DATE OF CONSULTATION: 08/10/2017 CONSULTING PHYSICIAN: Dr. Buck. REASON FOR CONSULTATION: Chest pain and palpitations. HISTORY OF PRESENT ILLNESS: Mr. Fraser is a pleasant 52-year-old female with a history significant for autism, autonomic dysfunction, POTS, dyslipidemia, type 2 diabetes and prior myocardial infarction/CAD, status post PCI x2. She is visiting from out of town, living in an [place] [facility] area. She presented to [facility] on 08/09/2017 with palpitations and chest pain. She said that she typically has symptoms of palpitations and chest pain, which is common for her with her POTS. Typically, these occur only while standing, but yesterday she was awakened at 08:00 p.m. from a nap with these symptoms as well as diaphoresis. The chest pain was a left upper chest pain, which she said felt like it was muscular. She would provide pressure with her hand in that area to try to relieve her symptoms. These symptoms lasted for approximately 2 hours. She states that her heart rate was racing and she estimates her heart rate to be approximately 115 beats per minute as she did bring her blood pressure cuff with her while visiting from out of town. She took nitroglycerin, but the nitroglycerin was . There was no relief in her symptoms, whatsoever. After approximately 2 hours of the chest discomfort and palpitations, her symptoms resolved and she has felt back to her baseline. She states that she has been sleep deprived while visiting from out of town and does not believe that she has been keeping up with hydration and also has not been eating as healthy as usual, consuming large amounts of sugar. The chest discomfort that she experienced yesterday, she said is completely different than her angina with her myocardial infarction. She states that her myocardial infarction was on 03/28/2015, when she went to [facility] in [place], [place]. She states that her chest discomfort was the feeling as though an elephant was sitting on her chest. She also had shortness of breath. The pain was located just along the left sternal border. She has not had any recurrent angina since that time. She states that she had a 30%, 60%, and 90% stenotic lesions in 3 different vessels. She states that the vessel with the 60% and 90% stenosis underwent PCI, but she does not have any stent cards. There are no records available at the time of dictation. She states that she was on aspirin, Plavix and Brilinta and has since been maintained on simply aspirin therapy. She denies melena, hematochezia, or hematuria. She has been diagnosed with stage I breast cancer and is awaiting bilateral mastectomy. She denies syncope recently, edema, or orthopnea. She follows with 2 separate cardiologists. One she follows with every 6 months and she also follows with the POTS specialist every 4 months in her hometown area. REVIEW OF SYSTEMS: As above and review of systems otherwise negative. She did state that she would like to go home. PAST MEDICAL HISTORY: 1. CAD status post TN and PCI on 03/28/2015 as noted above. 2. Dyslipidemia. 3. Type 2 diabetes. 4. Lower extremity neuropathy. 5. Chronic Lyme disease, currently on antibiotic therapy. 6. Autism. 7. POTS. 8. Breast cancer. 9. TIA in 2006. 10. Gastroesophageal reflux disease/gastric ulcer. 11. Chronic right upper abdominal pain. MEDICATIONS: While hospitalized included carvedilol 3.125 mg, lisinopril 10 mg at bedtime, Protonix 40 mg at bedtime, Zantac 75 mg p.o. b.i.d., and normal saline 2 liters. HOME MEDICATIONS: Include, 1. Carvedilol 3.125 mg up to 4 times daily as needed for tachycardia. 2. Lisinopril 10 mg at bedtime. 3. Doxycycline 100 mg p.o. b.i.d. Please see full list in the H&P. ALLERGIES: SHE STATES THAT FLUOROQUINOLONES CAUSED A TRUE ALLERGIC REACTION. OTHERWISE, SHE HAS HAD INTOLERANCES TO ACETAMINOPHEN, AMOXICILLIN, CLAVULANIC ACID, METOCLOPRAMIDE, IBUPROFEN, PHENYLPHENOL, BENADRYL AND STEROIDS. SOCIAL HISTORY: Denies tobacco, alcohol or drug abuse. She has 4 children, 2 adopted and 2 biologic children. She states all 4 of her children are autistic. She is and she states her and her are both autistic. She lives in the [place] area. FAMILY HISTORY: Grandfather at the age 50s from myocardial infarction. She had a father with valvular heart disease and strokes. Mother with diabetes, hypertension and dyslipidemia. PHYSICAL EXAMINATION: VITAL SIGNS: Temperature 36.5 degrees, heart rate 75 beats per minute, respiratory rate 18, blood pressure 148/80 mmHg, and oxygen saturation 100% on room air. Weight 64.2 kg. GENERAL: No acute distress. She was alert and oriented. HEENT: Anicteric sclerae. NECK: No appreciable JVD. No bruits. Normal carotid upstrokes bilaterally. CARDIAC EXAMINATION: PMI was nonpalpable. There was no ventricular heave. Regular, normal S1 and S2. No murmurs, rubs, or gallops. LUNGS: Clear to auscultation bilaterally without wheezes, rales or rhonchi. ABDOMEN: Soft and nondistended. There is mild tenderness in the right upper quadrant, which she states is a chronic issue. Normoactive bowel sounds. No bruits. EXTREMITIES: No cyanosis or edema. 2+ radial pulses bilaterally. 2+ dorsalis pedis pulses bilaterally. No palpable cords. PSYCHIATRIC: Affect appears appropriate. CHEST: Tenderness in left upper chest reproducing her chest pain described in the HPI. ECG on 08/09/2017 at 21:48, sinus tachycardia at 105 beats per minute. Telemetry personally reviewed. No arrhythmias. LABORATORY DATA: White blood cell count 5.31, hemoglobin 12.1, and platelets 243. Sodium 135, potassium 3.7, BUN 14, and creatinine 0.84. Troponin undetectable x2. AST 13 and ALT 23. Albumin 3.8. INR 1. CTA of the chest on 08/09/2017 report reviewed: No evidence of acute pulmonary embolism per radiology. No aortic dissection reported. Multiple bilateral solid pulmonary nodules with recommended followup. ASSESSMENT AND PLAN: 1. Atypical chest pain: She has reproducible chest discomfort and had several hours of chest discomfort with negative troponins. Ischemic evaluation not recommended at this time. She states that this chest pain is different than prior angina and typically part of her postural orthostatic tachycardia syndrome. She has had stress testing as recent as March of 2017 and is followed closely by her 2 other cardiologists. No further ischemic evaluation recommended at this time. Follow up with primary agriculture technician. 2. Palpitations: Sinus tachycardia noted on ECG. She is currently asymptomatic. She takes carvedilol only as needed. Would consider standing doses of beta falguni if it offers her relief as she mentioned that it does; however, she is followed closely for her postural orthostatic tachycardia syndrome by a agriculture technician every 4 months. We will defer treatment of her palpitations/tachycardia to her primary agriculture technician. 3. Coronary artery disease, status post myocardial infarction and percutaneous coronary intervention: Details of her PCI are not well known at this time. Shortly after our discussion, she was discharged from the hospital. Records could be obtained if she has further issues. Would recommend aspirin 81 mg daily indefinitely if she truly underwent PCI. Recommend high intensity statin therapy. 4. Dyslipidemia: Recommend high intensity statin therapy given prior coronary artery disease. 5. Disposition: She would like to be discharged so that she can go home and rest. Follow up with her own agriculture technician for her atypical symptoms, which appear to be a chronic issue with her postural orthostatic tachycardia syndrome. The patient's care has been discussed with Dr. Salmeron of the primary hospitalist service. Thank you for allowing me to participate in care of Ms. Fraser. Sincerely,
[2017-08-10] MEDS ORDERED: CHLORPHENIRAMINE PO SCH (21:00)
[2017-08-10] MEDS ORDERED: PANTOprazole SOD 40 MG TAB PO SCH (21:00)
[2017-08-10] MEDS ORDERED: LISINOPRIL 10 MG TAB PO SCH (21:00)
[2017-08-10] MEDS ORDERED: DEXLANSOPRAZOLE 60 MG CAPDR PO SCH (21:00)
[2017-08-11] MEDS ORDERED: INSULIN GLARGINE SOLOSTAR 100 UNITS/ML 3 ML PEN SC SCH (16:15)
== END 2017-08-10 14:40 | disposition home or self-care (01) ==
LOC: EDBD 21:45 → C.EDC 21:46 → C.2T 08-10 02:01 → ENRESERV 08-10 02:11
PROVIDERS: ADMIT Hospitalist; ATTEND Family Medicine
DX: R07.9 Chest pain, unspecified (principal); R00.2 Palpitations; Z86.73 Personal history of transient ischemic attack (TIA), and cerebral infarction without residual deficits; E11.9 Type 2 diabetes mellitus without complications; F84.0 Autistic disorder; Z79.899 Other long term (current) drug therapy; E78.5 Hyperlipidemia, unspecified; Z82.49 Family history of ischemic heart disease and other diseases of the circulatory system